=== PATIENT | male | born 1995 | race Caucasian/White ===

== ENCOUNTER 2016-06-23 01:22 | Emergency (ER) | payer MEDICAID ==
[~2016-06-23] VITALS: Ht 180.3 cm; Wt 68.6 kg
[2016-06-23] MEDS ORDERED: ERYT1OIN5 EACHEYE (01:38)
[2016-06-23] MEDS ORDERED: FEXO60TA24 PO (01:38)
[2016-06-23 03:20] VITALS: BP 131/81
== END 2016-06-23 03:22 | disposition home or self-care (01) ==
LOC: ED 02:38
DX: J02.8 Acute pharyngitis due to other specified organisms (principal); F17.200 Nicotine dependence, unspecified, uncomplicated
CPT/HCPCS: 87081; 87880; 99284

== ENCOUNTER 2017-07-20 15:07 | Emergency (ER) | payer SELFPAY ==
[~2017-07-20] VITALS: Ht 180.3 cm; Wt 69.0 kg
[~2017-07-20 15:07] MED LIST: ERYT1OIN5 EACHEYE; FEXO60TA24 PO
[2017-07-20] MEDS ORDERED: LIDOCAINE-MPF 1%, 5ML ONE (16:27)
[2017-07-20] MEDS ORDERED: DIPH,PERTUSS(ACELL),TET VAC/PF 0.5 ML IM-VACC ONE ×2 (16:27→16:30)
[2017-07-20] MEDS ORDERED: LIDOCAINE-MPF 1%, 5ML INFIL ONE (16:30)
[2017-07-20 16:33] LABS: ALBUMIN 3.4 g/dL (3.4-5.0); ANION GAP 7 mmol/L (5-15); CALCIUM 8.4 mg/dL (8.5-10.1); CHLORIDE 107 mmol/L (98-107); CREATININE 0.93 mg/dL (0.7-1.3)
[2017-07-20 16:42] LABS: MD YES; MEAN CORPUSCULAR HEMOGLOBIN 30.9 pg (27.5-34.5); MEAN CORPUSCULAR HGB CONC 34.2 g/dL (33.2-36.2); MEAN CORPUSCULAR VOLUME 90.4 fL (81-97); MEAN PLATELET VOLUME 7.8 fL (7.4-10.4); PLATELET COUNT 309 x10^3/uL (130-400); RED BLOOD COUNT 4.95 x10^6/uL (4.38-5.82); RED CELL DISTRIBUTION WIDTH 13.3 % (9.4-14.8)
[2017-07-20 16:52] LABS: BAND#(MANUAL) 0.46 x10^3/uL; BANDS%(MANUAL) 10 % (0-7); BASOS#(MANUAL) 0.05 x10^3/uL (0-0.1); BASOS% (MANUAL) 1 % (0-1); EOS#(MANUAL) 0.18 x10^3/uL (0.0-0.4); EOS% (MANUAL) 4 % (1-7); LYMPH#(MANUAL) 1.98 x10^3/uL (1-3.4); LYMPHS% (MANUAL) 43 % (22-44); MONOS#(MANUAL) 0.87 x10^3/uL (0.3-2.7); MONOS% (MANUAL) 19 % (2-9); REACTIVE LYMPHS # (MANUAL) 0.05 x10^3/uL (0-0); REACTIVE LYMPHS % (MANUAL) 1 % (0-0); SEG#(MANUAL) 1.01 x10^3/uL (1.8-6.8); SEGS% (MANUAL) 22 % (42-75)
[2017-07-20 16:53] LABS: <PLATELET ESTIMATE> ADEQUATE; <PLT MORPHOLOGY> NORMAL PLT MORPH; <RBC MORPHOLOGY> NORMAL
[2017-07-20] MEDS ORDERED: CEFAZOLIN 1,000 MG IM ONE (17:00)
[2017-07-20] MEDS ORDERED: CEFAZOLIN 1,000 MG ONE (18:24)
[2017-07-20 18:40] VITALS: BP 116/57
== END 2017-07-20 18:42 | disposition home or self-care (01) ==
LOC: ED 17:28
DX: S61.210A Laceration without foreign body of right index finger without damage to nail, initial encounter (principal); L03.011 Cellulitis of right finger; F17.200 Nicotine dependence, unspecified, uncomplicated; W26.0XXA Contact with knife, initial encounter; Y93.89 Activity, other specified; Y92.009 Unspecified place in unspecified non-institutional (private) residence as the place of occurrence of the external cause; Y99.8 Other external cause status
CPT/HCPCS: 36415; 80048; 82040; 85025; 90471; 90715; 96372; 99284; J0690